=== PATIENT | female | born 1950 | race Caucasian/White ===

== ENCOUNTER 2016-07-22 09:53 | Emergency (ER) | payer MEDICARE, BC ==
[~2016-07-22] VITALS: Ht 167.6 cm; Wt 113.4 kg
[2016-07-22] MEDS ORDERED: NAPROXEN 500 MG TABLET PO STA (11:05)
[2016-07-22 11:30] VITALS: BP 158/75
[2016-07-22] MEDS ORDERED: CYCL10TA2 PO (11:44)
[2016-07-22] MEDS ORDERED: NAPR500T PO (11:44)
--- NOTE | 2016-07-22 11:44 | PHYS DOC ---
Past Medical History Past Medical History: Hypertension Past Surgical History: Other Additional Past Surgical Histo: D&C Alcohol Use: None Drug Use: None Adult General Chief Complaint Chief Complaint: RIB PAIN [facility] HPI Patient is a 66 year old female who presents with complaint of pain along the left side of her back. Patient states that she has had trouble for the past 2 weeks, however she had worsening pain earlier today. The patient states that she works in the [employer] here at [employer] and was reaching into a laundry been with her left hand. Patient states that she felt a "crack" in the left side of her back which she was concerned might of been a broken rib. Patient states that she has 8 out of 10 pain currently. Patient states that it worsens with movement and improves with rest. Patient denies any associated shortness of breath and denies any other injuries. Patient has not taken any medications to help with symptoms at this time. Patient denies any direct trauma to the area. Review of Systems Review of Systems Constitutional: Denies fever or chills [] HENT: Denies nasal congestion or sore throat [] Respiratory: Denies cough or shortness of breath [] Cardiovascular: No additional information not addressed in HPI [] GI: Denies abdominal pain, nausea, vomiting, bloody stools or diarrhea [] : Denies dysuria or hematuria [] Musculoskeletal: Denies back pain or joint pain [] Integument: Denies rash or skin lesions [] Neurologic: Denies headache, focal weakness or sensory changes [] Current Medications Current Medications Current Medications Medications (Trade) Dose Ordered Sig/Hever Start Time Stop Time Status Last Admin Dose Admin Naproxen (Naprosyn) 500 mg 1X STAT 07/22/16 11:05 07/22/16 11:10 DC 07/22/16 11:23 500 MG Allergies Allergies Allergies Coded Allergies Type Severity Reaction Last Updated Verified Sulfa (Sulfonamide Antibiotics) Allergy Unknown 11/05/13 Yes Physical Exam Physical Exam Constitutional: Alert, obese, afebrile, appears in mild discomfort. [] HENT: Normocephalic, atraumatic, bilateral external ears normal, oropharynx moist, no oral exudates, nose normal. [] Eyes: PERRLA, EOMI, conjunctiva normal, no discharge. [] Neck: Normal range of motion, no tenderness, supple, no stridor. [] Cardiovascular:Heart rate regular rhythm, no murmur [] Lungs & Thorax: Bilateral breath sounds clear to auscultation [] Abdomen: Bowel sounds normal, soft, no tenderness, no masses, no pulsatile masses. [] Skin: Warm, dry, no erythema, no rash. [] Back: Mild left mid thoracic tenderness to palpation, no midline tenderness, no CVA tenderness. [] Extremities: No tenderness, no cyanosis, no clubbing, ROM intact, no edema. [] Neurologic: Alert and oriented X 3, normal motor function, normal sensory function, no focal deficits noted. [] Current Patient Data Vital Signs Vital Signs Date Time Temp Pulse Resp B/P Pulse Ox O2 Delivery O2 Flow Rate FiO2 07/22/16 11:30 72 20 158/75 93 Room Air 07/22/16 10:06 97.9 97.9 EKG EKG Not performed [] Radiology/Procedures Radiology/Procedures [facility] [address] [place] [address] IMAGING REPORT Signed PATIENT: KATRINA CUEVAS ACCOUNT: [id number] : 1950 LOCATION: ER AGE: 66 SEX: F EXAM STATUS: REG ER ORD. PHYSICIAN: ERIKA MEJIA MD REASON: left posterior rib pain PROCEDURE: CHEST PA & LATERAL 2 view CXR: Clinical indications: Posterior left rib pain today. Comparison: February 04, 2012. Findings: No acute lung infiltrate or pleural effusion or pulmonary edema or lung mass or pneumothorax is seen. Heart size is enlarged but stable. The pulmonary vasculature, mediastinum and both jay are otherwise unremarkable. Old healed right rib cage fractures are seen. Impression: No new radiographic abnormality is seen. Stable mild cardiomegaly. DICTATED and SIGNED BY: MARIA ODLORES LAWSON MD DATE: 07/22/16 1140 CC: ERIKA MEJIA MD; LAURA IBARRA MD ~ [] Course & Med Decision Making Course & Med Decision Making Pertinent Labs and Imaging studies reviewed. (See chart for details) Patient started on naproxen in the emergency department. The patient will continue on naproxen and Flexeril to help with symptoms. Advised follow-up with primary doctor in 2-3 days. Advised return to emergency department for any worsening symptoms. Patient voiced understanding and in agreement with treatment plan. Dragon Disclaimer Dragon Disclaimer This electronic medical record was generated, in whole or in part, using a voice recognition dictation system. Departure Departure Impression: Primary Impression: Upper back strain Disposition: 01 HOME, SELF-CARE Condition: IMPROVED Referrals: LAURA IBARRA MD (PCP) Patient Instructions: Muscle Strain Additional Instructions: Follow-up with your primary doctor in 2-3 days. Return to the emergency department for any worsening symptoms. Scripts Naproxen (Naprosyn)500 Mg Tablet1 Tab PO BID #20 TAB Ref 0 Prov:ERIKA MEJIA MD 07/22/16 Cyclobenzaprine Hcl 10 Mg Tablet1 Tab PO QHS #20 TAB Prov:ERIKA MEJIA MD 07/22/16 Problem Qualifiers Primary Impression: Upper back strain Encounter type: initial encounter Qualified Code: S29.012A - Strain of muscle and tendon of back wall of thorax, initial encounter ERIKA MEJIA MD Jul 22, 2016 11:44
== END 2016-07-22 12:02 | disposition home or self-care (01) ==
LOC: ER 09:53
DX: S29.012A Strain of muscle and tendon of back wall of thorax, initial encounter (principal); I10 Essential (primary) hypertension; Z88.2 Allergy status to sulfonamides; X58.XXXA Exposure to other specified factors, initial encounter; Y93.89 Activity, other specified; Y92.89 Other specified places as the place of occurrence of the external cause; Y99.8 Other external cause status
CPT/HCPCS: 71020; 99284-25

== ENCOUNTER → 2016-09-09 | Outpatient (CLI) | payer MEDICARE, BC ==
[~2016-09-09] MED LIST: CYCL10TA2 PO; NAPR500T PO
--- NOTE | 2016-09-10 10:55 | RAD ---
DATE: 09/09/2016. EXAM: DIGITAL SCREEN BILAT W/CAD. HISTORY: Routine mammographic screening. COMPARISON: 10/28/2013. This study was interpreted with the benefit of Computerized Aided Detection (CAD ). FINDINGS: The breast parenchyma shows scattered fibroglandular densities. A nodule slightly medially on the left cc view has increased in size since the prior study. It may be notched suggesting a lymph node but is indeterminate. It correlate on the MLO view is unclear. On the right, there are no suspicious masses, microcalcifications or architectural distortion. BI-RADS CATEGORY: 0 INCOMPLETE: NEEDS ADDITIONAL IMAGING EVALUATION/COMPARISON WITH PRIOR STUDIES. RECOMMENDED FOLLOW-UP: 1. Spot compression of an increased nodule just medial to the left nipple line, and superiorly in the left MLO to identify in its correlate, with sonography if necessary. PQRS compliance statement: Patient information was entered into a reminder system with a target due date (now) for the next mammogram. Mammography is a sensitive method for finding small breast cancers, but it does not detect them all and is not a substitute for careful clinical examination. A negative mammogram does not negate a clinically suspicious finding and should not result in delay in biopsying a clinically suspicious abnormality. "Our facility is accredited by the [employer] Mammography Program." MTDD
== END | disposition home or self-care (01) ==
LOC: MAMMO 08:39
PROVIDERS: ATTEND Family Medicine
DX: Z12.31 Encounter for screening mammogram for malignant neoplasm of breast (principal)
CPT/HCPCS: G0202; 77067

== ENCOUNTER → 2016-09-19 | Outpatient (CLI) | payer MEDICARE, BC ==
--- NOTE | 2016-09-19 08:39 | RAD ---
DATE: 09/19/2016 EXAM: DIGITAL DIAGNOSTIC LT HISTORY: Suspicious screening study COMPARISON: 09/09/2016 This study was interpreted with the benefit of Computerized Aided Detection (CAD). FINDINGS: On the screening study there was a faint nodular opacity seen only on the cc view just medial to the midline in the left breast. Today's spot compression CC and rolled cc views do not demonstrate a discrete nodule. No suspicious density is seen on the oblique or spot compression oblique view. There are heterogeneous scattered fibroglandular densities. IMPRESSION: Additional views of left breast do not demonstrate a suspicious nodule. Mammographic surveillance consisting of left mammograms in 6 months and bilateral mammography at one year is suggested. BI-RADS CATEGORY: 3 PROBABLY BENIGN FINDING(S)-SHORT INTERVAL FOLLOW-UP SUGGESTED RECOMMENDED FOLLOW-UP: 6M 6 MONTH FOLLOW-UP PQRS compliance statement: Patient information was entered into a reminder system with a target due date for the next mammogram. Mammography is a sensitive method for finding small breast cancers, but it does not detect them all and is not a substitute for careful clinical examination. A negative mammogram does not negate a clinically suspicious finding and should not result in delay in biopsying a clinically suspicious abnormality. "Our facility is accredited by the [employer] Mammography Program."
== END | disposition home or self-care (01) ==
LOC: MAMMO 15:52
PROVIDERS: ATTEND Family Medicine
DX: R92.8 Other abnormal and inconclusive findings on diagnostic imaging of breast (principal)
CPT/HCPCS: G0206; 77065

== ENCOUNTER → 2016-11-22 | Day surgery (SDC) | payer MEDICARE, BC ==
[~2016-11-22] MED LIST changes: +AMLO5TAB2 PO; +CHOL100013 PO; +IV RINGERS,LACTATED 1000ML 1,000 ML IV SCH; +LIDOCAINE 2% PF Vial for OR 5 ML VIAL. ONE; +LOSA100T6 PO; +PROPOFOL 40 ML IV ONE
[2016-11-22 08:35] VITALS: BP 148/86
--- NOTE | 2016-11-22 08:51 | HP ---
ADMIT DATE: 11/22/2016 REFERRING PHYSICIAN: Dania Vieyra M.D. HISTORY OF PRESENT ILLNESS: A 66-year-old female whose past medical history is significant for hypertension as well as osteoarthrosis, IBS, is seen with persistent diffuse abdominal pain associated with nausea, belching, anorexia and some constipation. There has been no melena and/or hematochezia. Weight has been stable. She has had 6-month history of continued symptoms. No family history of colon cancer is noted. She has not undergone previous colonoscopy and despite Tums and other OTC remedies, her persistent heartburn is not resolved. Continued issues, she requests additional evaluation. ALLERGIES: SULFA. PAST MEDICAL HISTORY: Osteoarthrosis, hypertension, IBS. FAMILY HISTORY: Significant for cerebrovascular accident in mother and sibling, diabetes, hypertension. MEDICATIONS: Presently include amlodipine, vitamin D, cyclobenzaprine, losartan, Naprosyn. SOCIAL HISTORY: She is a nondrinker, smoker. REVIEW OF SYSTEMS: Per records. PHYSICAL EXAMINATION: GENERAL: Reveals a well-nourished, well-developed female. VITAL SIGNS: Temperature is 97, pulse 80, respirations 20. HEENT: Normocephalic and atraumatic head. Pupils and extraocular movements are not tested. Sclerae anicteric. NECK: Supple. LUNGS: Clear. CARDIOVASCULAR: Reveals S1, S2 without S3, S4 or appreciable murmur. ABDOMEN: Reveals soft abdomen, normal bowel sounds, without appreciable hepatosplenomegaly with diffuse tenderness. EXTREMITIES: Reveals no cyanosis, clubbing or edema. IMPRESSION: Diffuse abdominal pain with heartburn. Etiology is to be determined. Differential includes irritable bowel syndrome, inflammatory bowel disease, celiac disease, gastric cancer among others. Therefore, recommend upper endoscopy and colonoscopy to further assess her symptoms. Risks and benefits of procedures have been discussed with the patient who is willing to proceed at this time. YOLANDA MEJIA MD DR: JIMENEZ/zully JOB#: [id number] / [id number]
--- NOTE | 2016-11-26 17:35 | PATHOLOGY ---
PATHOLOGY REPORT * * * * * * * * FINAL DIAGNOSIS: A. Gastric biopsy, gastric ulcer: - Consistent with reactive gastropathy. B. Esophageal biopsy, distal esophagus: - Segments of hyperplastic squamous esophageal mucosa and esophagogastric mucosa showing active chronic inflammation, consistent with reflux esophagitis. COMMENT: Sections of the gastric ulcer biopsy reveal segments of gastric antral mucosa showing congestion, foveolar hyperplasia, and mild chronic inflammation with a few admixed eosinophils. An immunoperoxidase stain for Helicobacter is obtained. No Helicobacter organisms are identified. The findings are consistent with a reactive gastropathy. Sections of the distal esophageal biopsy reveal segments of hyperplastic squamous esophageal mucosa and esophagogastric mucosa showing moderate active chronic inflammation. The findings are consistent with reflux esophagitis. There is no evidence of Cain's change, dysplasia, or malignancy. (JPM:; d/t: 11/26/16) Special Stain Performed: Immunoperoxidase stain for Helicobacter (A1) REPORT ELECTRONICALLY SIGNED BY: Raymond Quinones M.D. DATE/TIME: 11/26/2016 17:20 * * * * * * * * GROSS PATHOLOGY: A. Received in formalin labeled, [facility] Gastric ulcer biopsy, are two 3 mm brown mucosal fragments which are placed between sponges and submitted entirely in cassette A1. B. Received in formalin labeled, Luisanaitis Distal esophagus, are four small 1 mm fragments of brown mucosa which are placed in a tissue bag and submitted entirely in cassette B1. SWK/db INITIAL CPT CODE(S): A; 81125, 45830 B; 61905 Professional services performed by [facility] at [address] [address] Technical services performed by [facility] at [address] [place] [address] [address] [address]. SPECIMEN(S) RECEIVED: A.Gastric ulcer B.Distal esophagus CLINICAL HISTORY: Abdominal pain PATIENT: KATRINA CUEVAS /AGE: 12 1950 (Age: 66) PATIENT #: [id number] ALT CASE #: SPECIMEN COLLECTION DATE: 11/22/2016 SPECIMEN RECEIVED DATE: 11/22/2016 [facility] - [address] [place] [address] - PHONE: [phone] * * * END OF REPORT * * *
== END | disposition home or self-care (01) ==
LOC: ENDOS 06:09
PROVIDERS: ATTEND Internal Medicine Gastroenterology
DX: K64.0 First degree hemorrhoids (principal); K57.30 Diverticulosis of large intestine without perforation or abscess without bleeding; K29.50 Unspecified chronic gastritis without bleeding; K25.9 Gastric ulcer, unspecified as acute or chronic, without hemorrhage or perforation; E66.9 Obesity, unspecified; I10 Essential (primary) hypertension; M19.90 Unspecified osteoarthritis, unspecified site
CPT/HCPCS: 43239; 45378; 88305; 88342; J2704; G0641

== ENCOUNTER 2017-01-09 19:31 | Emergency (ER) | payer MEDICARE, BC ==
[~2017-01-09] VITALS: Ht 167.6 cm; Wt 113.4 kg
[~2017-01-09 19:31] MED LIST changes: -IV RINGERS,LACTATED 1000ML 1,000 ML IV SCH; -LIDOCAINE 2% PF Vial for OR 5 ML VIAL. ONE; -PROPOFOL 40 ML IV ONE
[2017-01-09 21:15] LABS: BASO # 0.1 x10^3/uL (0.0-0.2); BASO % 1 % (0-3); EOS % 2 % (0-3); HEMATOCRIT 40.9 % (36.0-47.0); HEMOGLOBIN 14.4 g/dL (12.0-15.5); LYMPH # 1.7 x10^3/uL (1.0-4.8); LYMPH % 22 % (24-48); MEAN CORPUSCULAR HEMOGLOBIN 30 pg (25-35); MEAN CORPUSCULAR HGB CONC 35 g/dL (31-37); MEAN CORPUSCULAR VOLUME 85 fL (79-100); MONO % 10 % (0-9); NEUT % 64 % (31-73); PLATELET COUNT 181 x10^3/uL (140-400); RED BLOOD COUNT 4.84 x10^6/uL (3.50-5.40); RED CELL DISTRIBUTION WIDTH 13.2 % (11.5-14.5); WHITE BLOOD COUNT 7.7 x10^3/uL (4.0-11.0)
[2017-01-09 21:22] LABS: CALCIUM 9.8 mg/dL (8.5-10.1); CREATININE 0.7 mg/dL (0.6-1.0); GFR 83.2; POTASSIUM 3.9 mmol/L (3.5-5.1)
[2017-01-09 21:25] LABS: PROTHROMBIN TIME PATIENT 12.8 SEC (11.7-14.0)
[2017-01-09 21:28] LABS: ALBUMIN 3.8 g/dL (3.4-5.0); ALBUMIN/GLOBULIN RATIO 0.9 (1.0-1.7); TOTAL BILIRUBIN 0.3 mg/dL (0.2-1.0); TOTAL PROTEIN 7.9 g/dL (6.4-8.2)
--- NOTE | 2017-01-09 22:19 | PHYS DOC ---
Past Medical History Past Medical History: Diverticulitis, Hypertension, IBS Past Surgical History: Other Additional Past Surgical Histo: D&C Alcohol Use: None Drug Use: None Adult General Chief Complaint Chief Complaint: RECTAL BLEED HPI HPI Patient is a 66 year old of blood from her rectum today. Patient states that she has had loose stools about 3 times a day for the past 3 days. They appeared normal other than being loose. Her last stool was very loose and had some dark red in it. Since then, she felt like she needed to have a bowel movement when she went to the bathroom it seemed to be mostly or all blood in the toilet with some small clots. When she wiped, she saw some small clots about the size of her thumbnail on the toilet paper. The blood was red in color. She is on no blood thinners. She's never had rectal bleeding before. Patient states she had upper and lower endoscopy about 2 or 3 months ago. She was told she had a "ulcer". She was started on omeprazole and her symptoms have resolved. On her lower endoscopy she had diverticulosis but nothing else. PCP Dr. Jarrell Arora Review of Systems Review of Systems Constitutional: Denies fever or chills [] Respiratory: Denies cough or shortness of breath [] Cardiovascular: Denies chest pain GI: As in history of present illness Musculoskeletal: Denies back pain or joint pain [] Integument: Denies rash or skin lesions [] Neurologic: Denies headache, focal weakness or sensory changes [] Allergies Allergies Allergies Coded Allergies Type Severity Reaction Last Updated Verified Sulfa (Sulfonamide Antibiotics) Allergy Intermediate 11/22/16 Yes Physical Exam Physical Exam Constitutional: Well developed, well nourished, no acute distress, non-toxic appearance. Alert, mentating normally. HENT: Normocephalic, atraumatic, bilateral external ears normal, nose normal. [] Eyes: conjunctiva normal, no discharge. [] Neck: Normal range of motion, no stridor. [] Cardiovascular:Heart rate regular rhythm, no murmur , nontoxic and cardiac Lungs & Thorax: Bilateral breath sounds clear to auscultation [] Abdomen: Bowel sounds normal, soft, no tenderness, no masses, no pulsatile masses. Abdomen exam benign. Rectal exam: No blood externally. External hemorrhoids present that do not appear to be acutely thrombosed or inflamed. Digital exam with small amount of brownish stool, no bright red blood on digital exam, it was uncomfortable externally. Skin: Warm, dry, no erythema, no rash. [] Extremities: No tenderness, no cyanosis, no clubbing, ROM intact, no edema. [] Neurologic: Alert and oriented X 3, normal motor function, normal sensory function, no focal deficits noted. [] Current Patient Data Vital Signs Vital Signs Date Time Temp Pulse Resp B/P (MAP) Pulse Ox O2 Delivery O2 Flow Rate FiO2 01/09/17 22:30 76 149/82 (104) 97 Room Air 01/09/17 19:51 98.0 18 98.0 Lab Values Laboratory Tests Test 01/09/17 21:00 White Blood Count 7.7 x10^3/uL (4.0-11.0) Red Blood Count 4.84 x10^6/uL (3.50-5.40) Hemoglobin 14.4 g/dL (12.0-15.5) Hematocrit 40.9 % (36.0-47.0) Mean Corpuscular Volume 85 fL (79-100) Mean Corpuscular Hemoglobin 30 pg (25-35) Mean Corpuscular Hemoglobin Concent 35 g/dL (31-37) Red Cell Distribution Width 13.2 % (11.5-14.5) Platelet Count 181 x10^3/uL (140-400) Neutrophils (%) (Auto) 64 % (31-73) Lymphocytes (%) (Auto) 22 % (24-48) L Monocytes (%) (Auto) 10 % (0-9) H Eosinophils (%) (Auto) 2 % (0-3) Basophils (%) (Auto) 1 % (0-3) Neutrophils # (Auto) 5.0 x10^3uL (1.8-7.7) Lymphocytes # (Auto) 1.7 x10^3/uL (1.0-4.8) Monocytes # (Auto) 0.8 x10^3/uL (0.0-1.1) Eosinophils # (Auto) 0.2 x10^3/uL (0.0-0.7) Basophils # (Auto) 0.1 x10^3/uL (0.0-0.2) Prothrombin Time 12.8 SEC (11.7-14.0) Prothrombin Time INR 1.0 (0.8-1.1) PTT 31 SEC (24-38) Sodium Level 142 mmol/L (136-145) Potassium Level 3.9 mmol/L (3.5-5.1) Chloride Level 106 mmol/L (98-107) Carbon Dioxide Level 28 mmol/L (21-32) Anion Gap 8 (6-14) Blood Urea Nitrogen 17 mg/dL (7-20) Creatinine 0.7 mg/dL (0.6-1.0) Estimated GFR (Cockcroft-Gault) 83.2 BUN/Creatinine Ratio 24 (6-20) H Glucose Level 110 mg/dL (70-99) H Calcium Level 9.8 mg/dL (8.5-10.1) Total Bilirubin 0.3 mg/dL (0.2-1.0) Aspartate Amino Transferase (AST) 16 U/L (15-37) Alanine Aminotransferase (ALT) 26 U/L (14-59) Alkaline Phosphatase 117 U/L (46-116) H Total Protein 7.9 g/dL (6.4-8.2) Albumin 3.8 g/dL (3.4-5.0) Albumin/Globulin Ratio 0.9 (1.0-1.7) L Laboratory Tests 01/09/17 21:00 Laboratory Tests 01/09/17 21:00 EKG EKG [] Radiology/Procedures Radiology/Procedures [] Course & Med Decision Making Course & Med Decision Making Pertinent Labs and Imaging studies reviewed. (See chart for details) 66-year-old female who recently had upper and lower endoscopy with the finding of an ulcer but no finding on the lower endoscopy reported, presents with what sounds like a fairly small amount of rectal bleeding today following 3 days of loose stools. She does take stool softeners and laxatives. Labs unremarkable for acute findings, no anemia. Exam negative for blood, is positive for external hemorrhoids. The patient did not have any passage of blood while in the emergency department and remained stable. I believe it is likely that her rectal bleeding is due to external hemorrhoids since she did recently have normal lower endoscopy and she does appear to have external hemorrhoids that are somewhat tender on exam. We will treat her for hemorrhoid bleeding and encourage follow-up with GI if needed, see instructions for plan. [] Ari Disclaimer Dragon Disclaimer This electronic medical record was generated, in whole or in part, using a voice recognition dictation system. Departure Departure Impression: Primary Impression: Hematochezia Additional Impression: External hemorrhoids Disposition: 01 HOME, SELF-CARE Condition: STABLE Referrals: LAURA IBARRA MD (PCP) Patient Instructions: Bloody Stools, [id number], Hemorrhoids, [id number] Additional Instructions: As we discussed, labs were normal today. There is no sign that you lost a serious amount of blood. Because you have recently had a normal colonoscopy, and you do have hemorrhoids, we will treat this for possible hemorrhoid flare. If you continue to have bloody stools, contact Dr. Arora to see what he wants to do. If you have a large amount of bloody stool and if you feel faint or weak , return to emergency. I have prescribed hemorrhoid suppositories to help with the pain, burning, and swelling. also continue stool softeners or laxatives. Scripts Hydrocortisone Acetate (ANUSOL-HC) 25 Mg Supp.rect 1 SUPP RC BID for HEMORRHOID, #14 SUPP Prov: JUANA DOMINGUEZ MD 01/09/17 Problem Qualifiers JUANA DOMINGUEZ MD Jan 09, 2017 22:19
[2017-01-09] MEDS ORDERED: HYDR25SU18 RC (22:24)
[2017-01-09 22:30] VITALS: BP 149/82
[2017-01-11] MEDS ORDERED: ERGO500027 PO (16:40)
[2017-01-11] MEDS ORDERED: NYST15CR2 VAG (16:40)
[2017-01-11] MEDS ORDERED: OMEP20CA9 PO (16:40)
== END 2017-01-09 22:38 | disposition home or self-care (01) ==
LOC: ER 19:31
DX: K92.1 Melena (principal); K64.8 Other hemorrhoids; K58.9 Irritable bowel syndrome, unspecified; I10 Essential (primary) hypertension
CPT/HCPCS: 36415; 80053; 85027; 85610; 85730; 99284

== ENCOUNTER → 2017-01-29 | Day surgery (SDC) | payer MEDICARE, BC ==
[~2017-01-29] MED LIST changes: +ERGO500027 PO; +HYDR25SU18 RC; +IV RINGERS,LACTATED 1000ML 1,000 ML IV SCH; +LIDOCAINE 1% 1 ML SYRINGE. ID PRN; +MIDAZOLAM HCL/PF 2 MG/2 ML VIAL. IV PRN; +NYST15CR2 VAG; +OMEP20CA9 PO; +PROPOFOL 20 ML IV ONE; +fentaNYL PF VIAL 100 MCG/2 ML VIAL IV PRN
[2017-01-29 08:37] VITALS: BP 137/72
--- NOTE | 2017-01-30 11:52 | PATHOLOGY ---
PATHOLOGY REPORT * * * * * * * * FINAL DIAGNOSIS: Gastric biopsy "persistent gastric ulcer, antrum: - Focal area consistent with reactive foveolar hyperplasia, possible healing ulcer. - Acute ulcer with necrotic acute exudate not seen. - Mild chronic inflammation and fibrosis. - The immunoperoxidase stains for Helicobacter pylori is negative. ([facility]; 01/30/2017) REPORT ELECTRONICALLY SIGNED BY: Albert Leon M.D. DATE/TIME: 01/30/2017 11:51 * * * * * * * * GROSS PATHOLOGY: Received in formalin labeled "Margareth Madrid, persistent gastric ulcer, antrum," are multiple segments of fitzpatrick soft tissue ranging from less than 0.1 to 0.3 cm in maximum dimension. The specimen is submitted entirely in cassette A1. ([facility]; 01/29/17) INITIAL CPT CODE(S): A; 53392, 76403 Professional services [place] [address] Technical services performed by [facility] at [address] [place] [address]. SPECIMEN(S) RECEIVED: A.Persistent gastric ulcer, antrum CLINICAL HISTORY: Ulcers PATIENT: MARGARETH MADRID /AGE: 12 1950 (Age: 66) PATIENT #: [id number] ALT CASE #: SPECIMEN COLLECTION DATE: 01/29/2017 SPECIMEN RECEIVED DATE: 01/29/2017 [facility] - [address] [place] [address] - PHONE: [phone] * * * END OF REPORT * * *
== END | disposition home or self-care (01) ==
LOC: SURG 06:55
PROVIDERS: ATTEND Internal Medicine Gastroenterology
DX: K29.50 Unspecified chronic gastritis without bleeding (principal); K25.9 Gastric ulcer, unspecified as acute or chronic, without hemorrhage or perforation; K25.7 Chronic gastric ulcer without hemorrhage or perforation; I10 Essential (primary) hypertension; M19.90 Unspecified osteoarthritis, unspecified site; E66.9 Obesity, unspecified; Z68.44 Body mass index [BMI] 60.0-69.9, adult; Z87.39 Personal history of other diseases of the musculoskeletal system and connective tissue; Z88.2 Allergy status to sulfonamides
CPT/HCPCS: 43239; 88305; 88342; J2704

== ENCOUNTER → 2017-03-13 | Outpatient (CLI) | payer MEDICARE, BC ==
[2017-01-29 08:37] VITALS: BP 137/72
[~2017-03-13] MED LIST changes: -IV RINGERS,LACTATED 1000ML 1,000 ML IV SCH; -LIDOCAINE 1% 1 ML SYRINGE. ID PRN; -MIDAZOLAM HCL/PF 2 MG/2 ML VIAL. IV PRN; -PROPOFOL 20 ML IV ONE; -fentaNYL PF VIAL 100 MCG/2 ML VIAL IV PRN
--- NOTE | 2017-03-13 11:54 | KCIC ---
MRI Lumbar Spine without contrast History: Lumbar radiculopathy, low back pain and leg pain getting worse Technique: Multiplanar, multi sequential noncontrast MR imaging was performed of the lumbar spine. Contrast: None Comparison: None Findings: Lumbar vertebral body stature is maintained. There is very minimal grade 1 anterior spondylolisthesis at L4-5 at which there is facet degenerative change. Conus terminates at L1-2. There is mild degenerative disc disease L4-5 and L5-S1, mild disc desiccation L3-4. There are posterior and anterior annular tears L3-4, posterior annular tear L4-5. There is no significant marrow edema. There is a 1 cm T2 hyperintense lesion of the visualized right kidney, statistically most likely a cyst. T12-L1: Spinal canal and neural foramina are adequate. There is a hemangioma of the L1 vertebral body. L1-L2: Spinal canal and neural foramina are adequate. L2-L3: There is negligible disc osteophyte complex. Spinal canal and neural foramina are adequate. L3-L4: Spinal canal is adequate. There is negligible disc osteophyte complex. There is very minimal narrowing of the anterior, inferior neural foramina bilaterally. L4-L5: There is mild facet hypertrophic change greater on the left. There is minimal buckling of the ligamentum flavum. There is mild narrowing of the far left lateral recess. There is very mild narrowing of the neural foramina bilaterally. L5-S1: There is prominence of epidural fat near circumferentially, preserved central subarachnoid space. There is mild narrowing of the right neural foramen, also bulge near the ventral undersurface of the right L5 nerve root in the proximal extraforaminal region. Left neural foramen is adequate. Impression: 1. There is no significant lumbar spinal stenosis, mild narrowing of the far left lateral recess L4-5. There is mild narrowing of the right L5-S1 neural foramen, bulge near the ventral undersurface of the exiting right L5 nerve root in the extraforaminal region. 2. There is mild degenerative disc disease L4-5 and L5-S1. 3. There is very minimal grade 1 anterior spondylolisthesis L4-5 at which there is facet degenerative change. Electronically signed by: Bryn Geiger MD (03/13/2017 11:51 AM) [id number]
== END | disposition home or self-care (01) ==
LOC: KCIC MRI 09:51
PROVIDERS: ATTEND Nurse Practitioner Gerontology
DX: M51.16 Intervertebral disc disorders with radiculopathy, lumbar region (principal); M43.16 Spondylolisthesis, lumbar region
CPT/HCPCS: 72148

== ENCOUNTER → 2017-04-25 | Outpatient (CLI) | payer MEDICARE, BC ==
[2017-01-29 08:37] VITALS: BP 137/72
[~2017-04-25] MED LIST changes: +NAPR-683 PO; -NAPR500T PO
--- NOTE | 2017-04-25 15:56 | RAD ---
DATE: 04/25/2017 EXAM: DIGITAL DIAGNOSTIC LT, BREAST LEFT HISTORY: Follow-up breast density COMPARISON: 09/19/2016, 09/09/20162013 This study was interpreted with the benefit of Computerized Aided Detection (CAD). The breast parenchyma shows scattered fibroglandular densities. Breast parenchyma level B. FINDINGS: The tiny nodular density seen medially in the left breast on the cc view of the 09/09/2016 study is again identified. It measures proximally 5 mm and appears unchanged. Its margins are smooth. It is not clearly visualized on today's oblique or straight mediolateral views. It was not visible on the rolled views from 09/19/2016. This nodule is intermittently obscured by other overlying nodular fibroglandular shadows. No new or enlarging breast densities are seen. No malignant type microcalcifications are evident. Left breast ultrasound, 04/25/2017: A targeted ultrasound exam of the medial aspect of left breast was performed. Normal heterogeneous fibroglandular shadows are present. No breast nodule is seen. IMPRESSION: 1. Unchanged tiny nodule in the medial left breast. 2. No sonographic correlate for this nodule could be identified. 3. Further mammographic surveillance consisting of bilateral mammograms in 6 months is suggested to confirm stability. BI-RADS CATEGORY: 3 PROBABLY BENIGN FINDING(S)-SHORT INTERVAL FOLLOW-UP SUGGESTED RECOMMENDED FOLLOW-UP: 6M 6 MONTH FOLLOW-UP PQRS compliance statement: Patient information was entered into a reminder system with a target due date for the next mammogram. Mammography is a sensitive method for finding small breast cancers, but it does not detect them all and is not a substitute for careful clinical examination. A negative mammogram does not negate a clinically suspicious finding and should not result in delay in biopsying a clinically suspicious abnormality. "Our facility is accredited by the [employer] Mammography Program."
== END | disposition home or self-care (01) ==
LOC: MAMMO 14:41
PROVIDERS: ATTEND Family Medicine
DX: N63.20 Unspecified lump in the left breast, unspecified quadrant (principal)
CPT/HCPCS: 76641; G0206; 77065

== ENCOUNTER 2017-10-08 05:47 | Emergency (ER) | payer MEDICARE, BC ==
[2017-10-08] MEDS: HYDROcodone/APAP 7.5/325MG 1 TAB TABLET PO (06:32)
[2017-10-08 06:39] LABS: ADD MAN DIFF? NO
[2017-10-08 06:43] LABS: BASO % 1 % (0-3); EOS # 0.2 x10^3/uL (0.0-0.7); EOS % 3 % (0-3); HEMATOCRIT 42.1 % (36.0-47.0); HEMOGLOBIN 14.2 g/dL (12.0-15.5); LYMPH # 1.3 x10^3/uL (1.0-4.8); LYMPH % 26 % (24-48); MEAN CORPUSCULAR HEMOGLOBIN 29 pg (25-35); MEAN CORPUSCULAR HGB CONC 34 g/dL (31-37); MEAN CORPUSCULAR VOLUME 85 fL (79-100); MONO # 0.5 x10^3/uL (0.0-1.1); MONO % 10 % (0-9); NEUT # 3.1 x10^3uL (1.8-7.7); NEUT % 60 % (31-73); PLATELET COUNT 189 x10^3/uL (140-400); RED BLOOD COUNT 4.94 x10^6/uL (3.50-5.40); RED CELL DISTRIBUTION WIDTH 13.7 % (11.5-14.5); WHITE BLOOD COUNT 5.1 x10^3/uL (4.0-11.0)
[2017-10-08 06:58] LABS: ANION GAP 9 (6-14); BLOOD UREA NITROGEN 19 mg/dL (7-20); CALCIUM 10.1 mg/dL (8.5-10.1); CARBON DIOXIDE 26 mmol/L (21-32); CHLORIDE 107 mmol/L (98-107); CREATININE 0.7 mg/dL (0.6-1.0); GLUCOSE 124 mg/dL (70-99); POTASSIUM 4.2 mmol/L (3.5-5.1); SODIUM 142 mmol/L (136-145)
[2017-10-08 08:00] LABS: MAGNESIUM 2.1 mg/dL (1.8-2.4)
[2017-10-08 08:00] LABS: URIC ACID 5.4 mg/dL (2.6-6.0)
== END 2017-10-08 08:50 | disposition home or self-care (01) ==
LOC: ER 05:47
DX: M79.662 Pain in left lower leg (principal); M19.90 Unspecified osteoarthritis, unspecified site; G89.29 Other chronic pain; I10 Essential (primary) hypertension; K58.9 Irritable bowel syndrome, unspecified; Z88.2 Allergy status to sulfonamides
CPT/HCPCS: 36415; 73562; 80048; 83735; 84550; 85025; 93971; 99285-25

== ENCOUNTER → 2017-10-22 | Outpatient (CLI) | payer MEDICARE, BC | END | disposition home or self-care (01) | LOC: MAMMO 12:25 | DX: N63.21 Unspecified lump in the left breast, upper outer quadrant (principal) | CPT/HCPCS: 77066; G0279 ==

== ENCOUNTER → 2019-05-18 | Outpatient (CLI) | payer MEDICARE, BC ==
[2017-10-08 05:50] VITALS: BP 192/90
[~2019-05-18] MED LIST changes: +AMLO5TAB10 PO; -AMLO5TAB2 PO; +LOSA100T14 PO; -LOSA100T6 PO; +OMEP20CA10 PO; -OMEP20CA9 PO
--- NOTE | 2019-05-18 13:44 | RAD ---
DATE: 05/18/2019 1:13 PM EXAM: MAMMO BELA DIAG BILAT HISTORY: Diagnostic right breast mammogram. Screening left breast mammogram. COMPARISON: October 22, 2017 Bilateral CC and MLO views of the breasts were performed. Bilateral breast tomosynthesis was performed in CC and MLO projections. This study was interpreted with the benefit of Computerized Aided Detection (CAD). FINDINGS: Breast Density: SCATTERED The breast parenchyma shows scattered fibroglandular densities. Breast parenchyma level B Previously identified left breast focal asymmetry retroareolar appears decreased compared to prior. No new suspicious masses, microcalcifications or architectural distortion is present to suggest malignancy in either breast. The visualized axillae are unremarkable. IMPRESSION: No mammographic evidence of malignancy. BI-RADS CATEGORY: 2 BENIGN FINDING(S) RECOMMENDED FOLLOW-UP: 12M 12 MONTH FOLLOW-UP Annual screening mammography is recommended, unless clinically indicated sooner based on symptoms or change in physical exam. PQRS compliance statement: Patient information was entered into a reminder system with a target due date one year for the next mammogram. Mammography is a sensitive method for finding small breast cancers, but it does not detect them all and is not a substitute for careful clinical examination. A negative mammogram does not negate a clinically suspicious finding and should not result in delay in biopsying a clinically suspicious abnormality. "Our facility is accredited by the [employer] Mammography Program."
== END | disposition home or self-care (01) ==
LOC: MAMMO 13:09
PROVIDERS: ATTEND Family Medicine
DX: R92.8 Other abnormal and inconclusive findings on diagnostic imaging of breast (principal)
CPT/HCPCS: 77066; G0279; 77062

== ENCOUNTER 2021-03-28 14:13 | Emergency (ER) | payer MEDICARE, BC ==
[~2021-03-28] VITALS: Ht 165.1 cm; Wt 125.0 kg
[~2021-03-28 14:13] MED LIST changes: +AMLO-186 PO; -AMLO5TAB10 PO; -OMEP20CA10 PO; +OMEP20CA16 PO
[2021-03-28 14:40] VITALS: BP 190/83
--- NOTE | 2021-03-28 15:25 | RAD ---
XR KNEE _3 VIEWS_LT Clinical Indication: Reason: left knee injured, fell on it. Comparison: Left knee, 3 views October 08, 2017 Findings: There are tricompartmental marginal osteophytes. There is moderate medial compartment narrowing. 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 There is patellar enthesophyte. Ther e is no joint effusion. No significant soft tissue swelling. IMPRESSION: No acute fracture. Electronically signed by: David Child MD (03/28/2021 3:22 PM) [id number]
--- NOTE | 2021-03-28 16:07 | PHYS DOC ---
Past Medical History Past Medical History: Diverticulitis, Diverticulosis, Hypertension, IBS Past Surgical History: Other Additional Past Surgical Histo: D&C Smoking Status: Never Smoker Alcohol Use: None Drug Use: None General Adult EDM: Chief Complaint: KNEE INJURY HPI: HPI: Patient is a 70 year old female who present to ER for evaluation of left knee injury. Patient was walking in the parking lot, she tripped and fell down on her left knee. Patient denies any head or neck injury. Patient denies any pain in her back, denies any pain in her upper extremity. Patient walked into her car and drove home. When she got home she noticed some swelling of her left k nee so she came here for evaluation. Patient actually walked in here on her own power without any problem. Review of Systems: Review of Systems: Constitutional: Denies fever or chills. [] Eyes: Denies change in visual acuity. [] HENT: Denies nasal congestion or sore throat. [] Respiratory: Denies cough or shortness of breath. [] Cardiovascular: Denies chest pain or edema. [] GI: Denies abdominal pain, nausea, vomiting, bloody stools or diarrhea. [] : Denies dysuria. [] Musculoskeletal: Denies back pain, positive for left knee pain. Integument: Denies rash. [] Neurologic: Denies headache, focal weakness or sensory changes. [] Endocrine: Denies polyuria or polydipsia. [] Lymphatic: Denies swollen glands. [] Psychiatric: Denies depression or anxiety. [] Heart Score: C/O Chest Pain: N/A Risk Factors: Risk Factors: DM, Current or recent (<one month) smoker, HTN, HLP, family history of CAD, obesity. Risk Scores: Score 0 - 3: 2.5% MACE over next 6 weeks - Discharge Home Score 4 - 6: 20.3% MACE over next 6 weeks - Admit for Clinical Observation Score 7 - 10: 72.7% MACE over next 6 weeks - Early Invasive Strategies Allergies: Allergies: Allergies Coded Allergies Type Severity Reaction Last Updated Verified Sulfa (Sulfonamide Antibiotics) Allergy Intermediate 01/29/17 Yes Physical Exam: PE: Constitutional: Well developed, well nourished, no acute distress, non-toxic appearance. [] HENT: Normocephalic, atraumatic, bilateral external ears normal, oropharynx moist, no oral exudates, nose normal. [] Eyes: PERRLA, EOMI, conjunctiva normal, no discharge. [] Neck: Normal range of motion, no tenderness, supple, no stridor. [] Cardiovascular:Heart rate regular rhythm, no murmur [] Lungs & Thorax: Bilateral breath sounds clear to auscultation [] Abdomen: Bowel sounds normal, soft, no tenderness, no masses, no pulsatile masses. [] Skin: Warm, dry, no erythema, no rash. [] Back: No tenderness, no CVA tenderness. [] Extremities: Left knee is swollen at the anterior, patellar area, left knee joint is stable, no bony deformity noted, no open wound. Neurologic: Alert and oriented X 3, normal motor function, normal sensory function, no focal deficits noted. [] Psychologic: Affect normal, judgement normal, mood normal. [] Current Patient Data: Vital Signs: Vital Signs Date Time Temp Pulse Resp B/P (MAP) Pulse Ox O2 Delivery O2 Flow Rate FiO2 03/28/21 14:40 98.1 91 18 190/83 (124) 97 Room Air 98.1 EKG: EKG: [] Radiology/Procedures: Radiology/Procedures: [facility] [address] [place] [address] IMAGING REPORT Signed PATIENT: KATRINA CUEVAS ACCOUNT: [id number] : 1950 LOCATION: ER AGE: 70 SEX: F EXAM STATUS: PRE ER ORD. PHYSICIAN: GUEVARA STODDARD DO REASON: left knee injured, fell on it. PROCEDURE: KNEE LEFT 3V XR KNEE _3 VIEWS_LT Clinical Indication: Reason: left knee injured, fell on it. Comparison: Left knee, 3 views October 08, 2017 Findings: There are tricompartmental marginal osteophytes. There is moderate medial compartment narrowing. 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 There is patellar enthesophyte. There is no joint effusion. No significant soft tissue swelling. IMPRESSION: No acute fracture. Electronically signed by: David Child MD (03/28/2021 3:22 PM) [id number] DICTATED and SIGNED BY: DAVID CHILD MD DATE: 03/28/21 [id number] Course & Med Decision Making: Course & Med Decision Making Pertinent Labs and Imaging studies reviewed. (See chart for details) Patient is a 70-year-old female who present to ER for evaluation of left knee injury, x-ray did not show any acute problem, patient was able to walk without a problem. Left knee was wrapped with Bret wrap, patient be discharged home, she was told to put ice on her left knee for the next 2 days. Dragon Disclaimer: Dragon Disclaimer: This electronic medical record was generated, in whole or in part, using a voice recognition dictation system. Departure Departure Impression: Primary Impression: Contusion of knee, left Disposition: 01 HOME / SELF CARE / HOMELESS Condition: STABLE Referrals: LAURA IBARRA MD (PCP) Follow up with your doctor this week as needed Patient Instructions: Contusion Additional Instructions: Thank you for visiting our Emergency Department. We appreciate you trusting us with your care. If any additional problems come up don't hesitate to return to visit us. Please follow up with your primary care provider so they can plan additional care if needed and know about the problem that you had. If symptoms worsen come back to the Emergency Department. Any concerning symptoms that start such as chest pain, shortness of air, weakness or numbness on one side of the body, running high fevers or any other concerning symptoms return to the ER. GUEVARA STODDARD DO Mar 28, 2021 16:07
[2021-03-28] MEDS ORDERED: HYDROcodone/APAP 5/325MG 1 TAB TABLET PO ONE (16:30)
== END 2021-03-28 16:35 | disposition home or self-care (01) ==
LOC: ER 14:13
DX: S80.02XA Contusion of left knee, initial encounter (principal); I10 Essential (primary) hypertension; K58.9 Irritable bowel syndrome, unspecified; Z88.2 Allergy status to sulfonamides; W01.0XXA Fall on same level from slipping, tripping and stumbling without subsequent striking against object, initial encounter; Y93.01 Activity, walking, marching and hiking; Y92.89 Other specified places as the place of occurrence of the external cause; Y99.8 Other external cause status
CPT/HCPCS: 73562; 99283